=== PATIENT | male | born 1975 | race Caucasian/White ===

== ENCOUNTER 2021-03-20 04:49 | Emergency (ER) | payer MEDICAID, OTHER ==
[~2021-03-20] VITALS: Ht 165.1 cm; Wt 67.4 kg
--- NOTE | 2021-03-20 05:28 | NUR ---
PT AMBULATING WITH STEADY GAIT TO ROOM 6. US OF R TESTICLE ORDERED.
--- NOTE | 2021-03-20 05:39 | NUR ---
dr keenan at bedside. he reports to pt he is suspicious of epididimytis. Pt reports no history of this. VSS. States someone drove him here tonight.
[2021-03-20 05:40] VITALS: BP 138/95
[2021-03-20] MEDS ORDERED: SULF1TAB49 PO (05:47)
[2021-03-20] MEDS ORDERED: sulfamethoxazole/trimethoprim DS (800/160mg) tablet PO ONE ×2 (05:50→07:00)
--- NOTE | 2021-03-20 06:24 | NUR ---
US TECH AT BEDSIDE.
== END 2021-03-20 07:11 | disposition home or self-care (01) ==
LOC: ER 04:50
DX: N43.3 Hydrocele, unspecified (principal); N50.811 Right testicular pain; F17.200 Nicotine dependence, unspecified, uncomplicated; F12.90 Cannabis use, unspecified, uncomplicated; Z88.5 Allergy status to narcotic agent; Z79.2 Long term (current) use of antibiotics
CPT/HCPCS: 76870; 93976; 99284

== ENCOUNTER 2021-04-01 06:04 | Emergency (ER) | payer MEDICAID ==
[~2021-04-01] VITALS: Ht 165.1 cm; Wt 68.2 kg
--- NOTE | 2021-04-01 07:07 | NUR ---
"PATIENT STATES THAT HE IS UNABLE TO GIVE A URINE SPECIMEN BECAUSE HE URINATED PRIOR TO COMING HERE AND "WILL NOT URINATE AGAIN UNTIL LATER ON THIS AFTERNOON." PATIENT OFFERED WATER AND HE STATES THAT HE NEEDS TO BE OUT OF HERE BY 8:30, SO HE DOES NOT THINK HE WILL BE ABLE TO URINATE BY THEN.
[2021-04-01 08:16] VITALS: BP 119/80
== END 2021-04-01 08:17 | disposition home or self-care (01) ==
LOC: ER 06:06
DX: N43.3 Hydrocele, unspecified (principal); Z88.8 Allergy status to other drugs, medicaments and biological substances; Z79.899 Other long term (current) drug therapy
CPT/HCPCS: 99283